=== PATIENT | male | born 1960 | race American Indian/Alaskan Native ===

== ENCOUNTER 2017-01-20 11:13 | Emergency (ER) | payer MEDICARE ==
--- NOTE | 2017-01-20 11:44 | Emergency Department Report ---
Chief Complaint: Medical Clearance Stated Complaint: ABNORMAL EKG/SENT BY PHYSICIAN Time Seen by Provider: 01/20/17 11:28 - HPI History of Present Illness: 56-year-old male was sent here by a friend and her specialist for an abnormal EKG. Positive for shortness of breath. Denies nausea, vomiting, chest pain, abdominal pain. No other medical complaints. - ROS Review of Systems: Per HPI - Exam Vital Signs: Vital Signs 01/20/17 11:20 Temperature 97.8 F Pulse Rate 64 Respiratory 18 Rate Blood Pressure 153/101 O2 Sat by Pulse 100 Oximetry Physical Exam: General: 56-year-old male in no acute distress. Well-developed, well-nourished. CV: Regular rate and rhythm. Lungs: Clear to auscultation bilaterally. MSE screening note: Focused history and physical exam performed. Due to findings the following was ordered: ED Disposition for MSE Condition: Stable
[2017-01-20 12:01] LABS: Basophils % (Auto) 0.6 % (0.0-1.8); Eosinophils % (Auto) 2.4 % (0.0-4.3); Hematocrit 40.3 % (35.5-45.6); Hemoglobin 13.1 gm/dl (11.8-15.2); Mean Corpuscular HGB Conc 33 % (32-34); Mean Corpuscular Hemoglobin 29 pg (28-32); Mean Corpuscular Volume 90 fl (84-94); Platelet Count 207 K/mm3 (140-440); Red Blood Count 4.46 M/mm3 (3.65-5.03); Red Cell Distribution Width 14.8 % (13.2-15.2)
[2017-01-20 12:25] LABS: Anion Gap 20 mmol/L; Blood Urea Nitrogen 12 mg/dL (9-20); Calcium 9.2 mg/dL (8.4-10.2); Carbon Dioxide 23 mmol/L (22-30); Chloride 103.5 mmol/L (98-107); Glucose 78 mg/dL (75-100); Potassium 4.4 mmol/L (3.6-5.0); Sodium 142 mmol/L (137-145)
[2017-01-20 12:26] LABS: Creatine Kinase MB 1.7 ng/mL (0.0-4.0)
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
[2017-01-20 12:59] LABS: Bilirubin,Urine NEG (Negative); Blood,Urine SM (Negative); Ketones,Urine NEG (Negative); Leukocyte Esterase,Urine NEG (Negative); Mucus,Urine FEW /HPF; Nitrite,Urine NEG (Negative); Protein,Urine <15 mg/dL mg/dL (Negative); Urobilinogen,Urine < 2.0 mg/dL (<2.0)
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
[2017-01-20 18:05] VITALS: BP 145/88
== END 2017-01-20 18:05 | disposition left against medical advice (07) ==
LOC: ED 11:13
DX: R94.31 Abnormal electrocardiogram [ECG] [EKG] (principal); I25.10 Atherosclerotic heart disease of native coronary artery without angina pectoris; R06.00 Dyspnea, unspecified; I10 Essential (primary) hypertension; E11.9 Type 2 diabetes mellitus without complications; F17.200 Nicotine dependence, unspecified, uncomplicated; Z79.82 Long term (current) use of aspirin
CPT/HCPCS: 36415; 71020; 80048; 81001; 82550; 82553; 84484; 85025; 93005; 93010

== ENCOUNTER 2017-02-09 06:34 | Day surgery (SDC) | payer MEDICARE ==
[2017-02-09] MEDS ORDERED: ECOTRIN PO ONE (06:50)
[2017-02-09] MEDS ORDERED: NACL 0.9% 500 ML 500 ML IV SCH (07:00)
[2017-02-09 07:20] LABS: Basophils % (Auto) 0.8 % (0.0-1.8); Eosinophils % (Auto) 2.2 % (0.0-4.3); Hematocrit 39.7 % (35.5-45.6); Hemoglobin 12.9 gm/dl (11.8-15.2); Mean Corpuscular HGB Conc 32 % (32-34); Mean Corpuscular Hemoglobin 29 pg (28-32); Mean Corpuscular Volume 91 fl (84-94); Platelet Count 200 K/mm3 (140-440); Red Blood Count 4.38 M/mm3 (3.65-5.03); White Blood Count 4.1 K/mm3 (4.5-11.0)
[2017-02-09 07:29] LABS: INR 0.98 (0.87-1.13)
[2017-02-09 07:49] LABS: Anion Gap 18 mmol/L; BUN/Creatinine Ratio 7.69; Blood Urea Nitrogen 10 mg/dL (9-20); Calcium 9.3 mg/dL (8.4-10.2); Carbon Dioxide 25 mmol/L (22-30); Chloride 106.1 mmol/L (98-107); Glucose 94 mg/dL (75-100); Potassium 4.3 mmol/L (3.6-5.0); Sodium 145 mmol/L (137-145)
[2017-02-09] MEDS ORDERED: XYLOCAINE 2% INFILTRATI ONE (08:45)
[2017-02-09] MEDS ORDERED: CALAN ONE (08:45)
[2017-02-09] MEDS ORDERED: HEPARIN/NS 5000 UNIT/500ML(CATH LAB) 1,000 ML IR ONE (08:45)
[2017-02-09] MEDS ORDERED: HEPARIN 10,000 UNITS/10 ML ONE (08:45)
[2017-02-09] MEDS ORDERED: VERSED ONE (08:46)
[2017-02-09] MEDS ORDERED: NITROGLYCERIN SYRINGE 3 ML ONE (08:46)
[2017-02-09] MEDS ORDERED: SUBLIMAZE ONE (08:47)
[2017-02-09] MEDS ORDERED: ULTRAM PO PRN (12:08)
--- NOTE | 2017-02-09 12:11 | Discharge Summary ---
Short Stay Discharge Plan Activity: advance as tolerated Weight Bearing Status: Partial Weight Bearing Diet: low fat, low cholesterol, low salt Wound: keep clean and dry Special Instructions: smoking cessation, no heavy lifting (3 days) Follow up with: ARSENIO ROBERTO MD [Primary Care Provider] - 7 Days DAYNA BYRD MD [Staff Physician] - 7 Days
--- NOTE | 2017-02-09 12:34 | Cardiac Catherization Report ---
CARDIAC CATHETERIZATION REASON FOR PROCEDURE: Chest pain, history of bioprosthetic aortic valve replacement. DESCRIPTION OF PROCEDURE: The patient was prepped and draped in a sterile fashion after informed consent. The right femoral artery was entered using Seldinger technique followed by placement of a 6-[place] sheath. Left coronary angiography was performed using a #4 left Guevara catheter. The right coronary ostium originated anomalously, from the anterior aspect of the ascending aorta. Multiple diagnostic catheters failed to engage vessel including a #4 right Guevara, a multipurpose catheter, and a no-torque right catheter. Ultimately, we obtained optimal engagement and angiography of the vessel using #1 left Amplatz catheter. The right Guevara catheter was used for left ventricular angiography. The catheters were removed, sheath removed, and hemostasis achieved using an Angio-Seal device. The patient was returned to the postprocedure unit in stable condition. There were no complications. FINDINGS: HEMODYNAMICS: Left ventricle end diastolic pressure was 21, following coronary angiography. Ascending aortic pressure was 130/71. There was no significant pressure gradient on pullback across the aortic bioprosthesis. CORONARY ANGIOGRAPHY: There was moderate calcification associated with the distal aspect of the left main coronary artery. Otherwise, the left main contained mild luminal irregularities. The left anterior descending artery and its diagonal branches were angiographically normal. The circumflex artery and its obtuse marginal branches were angiographically normal. The right coronary artery was dominant and similarly angiographically normal. Left ventricular systolic function was at lower limits of normal, ejection fraction 50-55%. CONCLUSION: 1. Mild calcification and mild luminal irregularities of the mid to distal left main, otherwise angiographically normal coronary arteries. 2. Well preserved left ventricular systolic function, ejection fraction 50-55%. 3. No significant transaortic gradient across the bioprosthetic aortic valve. RECOMMENDATION: Risk factor modification and medical therapy. JOB# [id number] ARIELA/[place]
[2017-02-09] MEDS ORDERED: NACL 0.9% 1000 ML 1,000 ML IV SCH (13:00)
[2017-02-09 14:41] VITALS: BP 122/79
== END 2017-02-09 14:56 | disposition home or self-care (01) ==
LOC: OPU 06:34
PROVIDERS: ATTEND Internal Medicine Cardiovascular Disease
DX: I25.10 Atherosclerotic heart disease of native coronary artery without angina pectoris (principal); E78.5 Hyperlipidemia, unspecified; I10 Essential (primary) hypertension; F17.210 Nicotine dependence, cigarettes, uncomplicated; Z95.2 Presence of prosthetic heart valve
CPT/HCPCS: 36415; 80048; 85025; 85610; 85730; 93005; 93010; 93458; C1760; C1769; C1894; J1644; J2250; J3010; J7040; Q9967

== ENCOUNTER 2022-03-06 10:18 | Outpatient (CLI) | payer OTHER, MEDICARE ==
--- NOTE | 2022-03-06 12:11 | Ultrasound Report ---
ULTRASOUND SCROTUM INDICATION / CLINICAL INFORMATION: N50.82 SCROTAL PAIN. COMPARISON: None available. FINDINGS -- RIGHT: TESTIS: Size = 3.7 x 2.8 x 1.7 cm. - Appearance: No significant abnormality. - Cyst / Mass: None. - Color Doppler Flow: Present. No significant abnormality. EPIDIDYMIS: No significant abnormality. HYDROCELE: None. VARICOCELE: None demonstrated. FINDINGS -- LEFT: TESTIS: Size = 3.5 x 2.3 x 1.7 cm. - Appearance: There are 2 adjacent intratesticular cysts measuring 1.5 cm and 1.1 cm respectively the cysts are located in the region of the rete testis. - Cyst / Mass: None. - Color Doppler Flow: Present. No significant abnormality. EPIDIDYMIS: No significant abnormality. HYDROCELE: None. VARICOCELE: None demonstrated. ADDITIONAL FINDINGS: None. IMPRESSION: 1. 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 2. Otherwise, no significant abnormality. Scribed by: Niru Spencer RDMS, JIMMY, ANN Scribed: 03/06/2022 10:44 AM I have reviewed the images, agree with this report, and edited this report as needed. Signer Name: Mike Vazquez MD Signed: 03/06/2022 12:07 PM Workstation Name: [id number]
--- NOTE | 2022-03-06 12:51 | Cat Scan Report ---
CT ABDOMEN AND PELVIS WITHOUT CONTRAST HISTORY: R31.29 OTHER MICROSCOPIC HEMATURIA. COMPARISON: None. TECHNIQUE: CT images of the abdomen and pelvis were obtained without administration of intravenous co ntrast. All CT scans at this location are performed using CT dose reduction for ALARA by means of au tomated exposure control. FINDINGS: Lungs/bones: Minimal interstitial prominence in the lower lungs. No focal infiltrate Abdomen/pelvis: Within limits of a noncontrast examination the liver, spleen, adrenal glands, pancre as, gallbladder and upper GI tract appear normal. Atherosclerotic change at the aorta. No definite re nal or ureteral stone is seen. Small retroperitoneal nodes are seen. Constipation is noted. No renal or ureteral stone is seen. Degenerative changes seen throughout spine IMPRESSION: 1. No renal or ureteral stone is seen. Signer Name: Darshan Delgado MD Signed: 03/06/2022 12:47 PM Workstation Name: [id number]
== END 2022-03-06 10:19 | disposition home or self-care (01) ==
LOC: CT 10:18
PROVIDERS: ATTEND Urology
DX: N44.2 Benign cyst of testis (principal); R31.29 Other microscopic hematuria; N50.82 Scrotal pain
CPT/HCPCS: 74176; 93975